=== PATIENT | male | born 1960 | race Caucasian/White ===

== ENCOUNTER 2020-06-10 10:41 | Emergency (ER) | payer OTHER ==
--- NOTE | 2020-06-10 11:05 | ERPHSYRPT ---
- History of Present Illness Time Seen by Provider: 06/10/20 10:55 Source: patient Exam Limitations: no limitations Patient Subjective Stated Complaint: Cough Triage Nursing Assessment: Patient ambulated back to ED and transferred self to bed. Patient A+O X3. Patient's skin pink, warm and dry. Patient complains of productive cough producing thick gonzalez, blood tinged sputum for a few days ago. Patient states he has been having fever on and off for 6 weeks that usually will last 3-4 days and will be 101.0-102.0. Patient denies pain or discomfort. Lungs clear a/p heidy. 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 Patient is a smoker of cigarettes. He is not on any medications at this time and he has no known drug allergies. He states that he has had fevers intermittently over the last few days but he is never taken his temperature. A few times he has had blood in the phlegm he is coughed up. Patient denies chest pain and denies shortness of breath. Timing/Duration: day(s) (5) Cough Quality/Degree: mild, blood streaked sputum Possible Cause: no prior episodes Modifying Factors: Improves With: coughing Associated Symptoms: fever (Subjective), cough, No chest pain/soreness, No lightheadedness Allergies/Adverse Reactions: No Known Drug Allergies Allergy (Unverified 06/10/20 10:44) Hx Influenza Vaccination/Date Given: No Hx Pneumococcal Vaccination/Date Given: No Immunizations Up to Date: Yes Travel Risk - International Travel Have you traveled outside of the country in past 3 weeks: No - Coronavirus Screening Are you exhibiting any of the following symptoms?: Yes Symptoms: Fever, Cough: New Onset, Shortness of Breath Close contact with a COVID-19 positive Pt in past 14-21 Days: No - Review of Systems Constitutional: Fever (Subjective at home) Eyes: No Symptoms Ears, Nose, & Throat: No Symptoms Respiratory: Cough, No Dyspnea Cardiac: No Symptoms, No Chest Pain Abdominal/Gastrointestinal: No Symptoms Genitourinary Symptoms: No Symptoms Musculoskeletal: No Symptoms Skin: No Symptoms Neurological: No Symptoms Psychological: No Symptoms Endocrine: No Symptoms Hematologic/Lymphatic: No Symptoms Immunological/Allergic: No Symptoms All Other Systems: Reviewed and Negative - Past Medical History Pertinent Past Medical History: Yes Neurological History: No Pertinent History ENT History: No Pertinent History Cardiac History: Hypertension Respiratory History: No Pertinent History Endocrine Medical History: No Pertinent History Musculoskeletal History: No Pertinent History GI Medical History: No Pertinent History History: No Pertinent History Psycho-Social History: No Pertinent History Male Reproductive Disorders: No Pertinent History Other Medical History: [place] disease - Past Surgical History Past Surgical History: Yes Neuro Surgical History: No Pertinent History Cardiac: No Pertinent History Respiratory: No Pertinent History Gastrointestinal: No Pertinent History Genitourinary: No Pertinent History Musculoskeletal: Orthopedic Surgery Male Surgical History: No Pertinent History Other Surgical History: Back surgery 1998 - Social History Smoking Status: Current every day smoker How long have you smoked: years Exposure to second hand smoke: Yes Drug Use: none Patient Lives Alone: Yes - Nursing Vital Signs Nursing Vital Signs: Initial Vital Signs Temperature 98.1 F 06/10/20 10:45 Pulse Rate 82 06/10/20 10:45 Respiratory Rate 20 06/10/20 10:45 Blood Pressure 184/115 06/10/20 10:45 O2 Sat by Pulse Oximetry 95 06/10/20 10:45 Pain Scale Pain Intensity 0 - Physical Exam General Appearance: no apparent distress, alert, anxiety Eye Exam: PERRL/EOMI, eyes nml inspection Ears, Nose, Throat Exam: normal ENT inspection, moist mucous membranes Neck Exam: normal inspection, non-tender, supple, full range of motion Respiratory Exam: normal breath sounds, lungs clear, airway intact, No chest tenderness, No respiratory distress Cardiovascular Exam: regular rate/rhythm, normal heart sounds, normal peripheral pulses Gastrointestinal/Abdomen Exam: soft, normal bowel sounds, No tenderness Rectal Exam: not done Back Exam: normal inspection, normal range of motion, No CVA tenderness, No vertebral tenderness Extremity Exam: normal inspection, normal range of motion, pelvis stable Neurologic Exam: alert, oriented x 3, cooperative, normal mood/affect Skin Exam: normal color, warm, dry Lymphatic Exam: No adenopathy SpO2 Interpretation: normal SpO2: 98 O2 Delivery: Room Air - Course Nursing assessment & vital signs reviewed: Yes Ordered Tests: Active Orders 24 hr Category Date Time Status CHEST 1 VIEW (PORTABLE) Stat Exams 06/10/20 11:06 Completed INFLUENZA A+B ANYA Stat Lab 06/10/20 11:20 Received Medication Summary Generic Name Dose Route Start Last Admin Trade Name Freq PRN Reason Stop Dose Admin Ceftriaxone Sodium 1,000 mg 06/10/20 11:42 Rocephin 1000 Mg Inj IM 06/10/20 11:43 STAT ONE Methylprednisolone Sodium Succinate 125 mg 06/10/20 11:42 Solu-Medrol 125 Mg IM 06/10/20 11:43 STAT ONE - Progress Progress: unchanged Air Movement: good Progress Note: 06/10/20 11:43 Chest x-ray shows right middle lung infiltrate versus atelectasis. Blood Culture(s) Obtained: No Antibiotics given: Yes Counseled pt/family regarding: lab results, diagnosis, need for follow-up, rad results - Departure Departure Disposition: Home Clinical Impression: Right pulmonary infiltrate on CXR Condition: Stable Critical Care Time: No Additional Instructions: Stop smoking. Avoid exposure to any kind of smoke. Drink plenty of fluids. Follow-up with your primary care physician for further management. Take medication as prescribed. Quarantine as directed until your COVID-19 test re sult returns. Prescriptions: Hydrocodone/Acetaminophen [Hydrocodone-Acetamn 7.5-325/15] 10 ml PO Q8H PRN PRN #120 ml MDD 30ml PRN Reason: Cough Albuterol 8 gm Mdi Hfa [Ventolin Hfa MDI] 8 gm IH Q4H #1 hfa.[email or web address].[email or web address] Azithromycin 250 mg [Zithromax 250 MG TABLET] 250 mg PO ZPACK #6 tablet
--- NOTE | 2020-06-10 11:36 | XRAY ---
Indication: Fever and cough. Comparison: None Portable chest demonstrates right mid lung infiltrate versus atelectasis and 6mm foreign body overlying left lung base. Remaining heart and lungs unremarkable. Bony thorax intact with mild degenerative changes.
[2020-06-10 11:39] VITALS: BP 154/108; PULSE 80
[2020-06-10] MEDS ORDERED: Rocephin 1000 MG INJ IM ONE (11:42)
[2020-06-10] MEDS ORDERED: solu-MEDROL 125 MG IM ONE (11:42)
[2020-06-10] MEDS ORDERED: solu-MEDROL 125 MG ONE (11:45)
[2020-06-10] MEDS ORDERED: Rocephin 1000 MG INJ ONE (11:45)
[2020-06-10] MEDS ORDERED: XYLOCAINE 1% HCL 20 ML MDV ONE (11:45)
[2020-06-10 11:47] VITALS: O2SAT 98
[2020-06-10 13:02] LABS: INFLUENZA A NEGATIVE (NEGATIVE); INFLUENZA B NEGATIVE (NEGATIVE)
== END 2020-06-10 12:14 | disposition home or self-care (01) ==
LOC: ED 10:41
DX: R91.8 Other nonspecific abnormal finding of lung field (principal); R05 Cough; Z72.0 Tobacco use
CPT/HCPCS: 71045; 87400; 96372; 99284; U0003; J0696; J2930

== ENCOUNTER 2021-02-23 06:28 | Emergency (ER) | payer OTHER ==
--- NOTE | 2021-02-23 07:05 | ERPHSYRPT ---
- History of Present Illness Time Seen by Provider: 02/23/21 07:00 Source: patient Exam Limitations: no limitations Patient Subjective Stated Complaint: I fell yesterday in the yard yesteday and tried to catch myself, and my shoulder really hurts today. Triage Nursing Assessment: pt fell in yard yesterday around 1500, while climbing off the mower and tripped. Pt landed on his rt shoulder. Pt had pain there yesterday but can't hardly move the rt shoulder today, can't lift it up. Physician History: This is a 60-year-old left-handed white male with [place]'s chorea who was mowing his lawn yesterday and lost balance, falling on his right shoulder. Pain was worse this morning. He did not lose consciousness. He did not hit his head. He denies headache. He denies neck pain. Occurred: yesterday Method of Injury: fell Quality: constant, aching Severity of Pain-Max: mild (To moderate) Severity of Pain-Current: mild (To moderate) Modifying Factors: Improves With: movement Associated Symptoms: none Allergies/Adverse Reactions: No Known Drug Allergies Allergy (Verified 02/23/21 06:52) Home Medications: Carvedilol 6.25 mg [Coreg 6.25 MG] 1 tab PO DAILY 02/23/21 [History] Hx Tetanus, Diphtheria Vaccination/Date Given: Yes Hx Influenza Vaccination/Date Given: No Hx Pneumococcal Vaccination/Date Given: No Immunizations Up to Date: Yes Travel Risk - International Travel Have you traveled outside of the country in past 3 weeks: No - Coronavirus Screening Are you exhibiting any of the following symptoms?: No Close contact with a COVID-19 positive Pt in past 14-21 Days: No - Vaccine Status Have you recieved a Covid-19 vaccination: Yes 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 - Vaccination Dates Date of 2cond Vaccination (if applicable): 10/16/20 - Review of Systems Constitutional: No Symptoms Eyes: No Symptoms Ears, Nose, & Throat: No Symptoms Respiratory: No Symptoms Cardiac: No Symptoms Abdominal/Gastrointestinal: No Symptoms Genitourinary Symptoms: No Symptoms Musculoskeletal: Fall, Injury (Right shoulder) Skin: No Symptoms Neurological: No Symptoms Psychological: No Symptoms Endocrine: No Symptoms Hematologic/Lymphatic: No Symptoms Immunological/Allergic: No Symptoms All Other Systems: Reviewed and Negative - Past Medical History Pertinent Past Medical History: Yes Neurological History: No Pertinent History ENT History: No Pertinent History Cardiac History: Hypertension Respiratory History: No Pertinent History Endocrine Medical History: No Pertinent History Musculoskeletal History: No Pertinent History GI Medical History: No Pertinent History History: No Pertinent History Psycho-Social History: No Pertinent History Male Reproductive Disorders: No Pertinent History Other Medical History: [place] disease - Past Surgical History Past Surgical History: Yes Neuro Surgical History: No Pertinent History Cardiac: No Pertinent History Respiratory: No Pertinent History Gastrointestinal: No Pertinent History Genitourinary: No Pertinent History Musculoskeletal: Orthopedic Surgery Male Surgical History: No Pertinent History Other Surgical History: Back surgery 1998 - Social History Smoking Status: Current every day smoker How long have you smoked: 40 Exposure to second hand smoke: Yes Drug Use: none Patient Lives Alone: No - Nursing Vital Signs Nursing Vital Signs: Initial Vital Signs Temperature 98.3 F 02/23/21 06:40 Pulse Rate 74 02/23/21 06:40 Respiratory Rate 18 02/23/21 06:40 Blood Pressure 180/110 02/23/21 06:40 O2 Sat by Pulse Oximetry 99 02/23/21 06:40 Pain Scale Pain Intensity 7 - Physical Exam General Appearance: no apparent distress, alert Eyes, Ears, Nose, Throat Exam: normal ENT inspection, moist mucous membranes Neck Exam: normal inspection, non-tender, supple, full range of motion Cardiovascular/Respiratory Exam: chest non-tender, normal breath sounds, regular rate/rhythm, heart sounds normal, no respiratory distress Abdominal Exam: non-tender Back Exam: normal inspection, normal range of motion, No CVA tenderness, No vertebral tenderness Shoulder Exam: normal inspection, no evidence of injury, limited ROM, pain, soft tissue tenderness Elbow/Forearm Exam: normal inspection, non-tender, no evidence of injury, normal ROM Wrist Exam: normal inspection, non-tender, no evidence of injury, normal ROM Hand Exam: normal inspection, non-tender, no evidence of injury, normal ROM Neuro/Tendon Exam: normal sensation, normal motor functions, normal tendon functions Mental Status Exam: alert, oriented x 3, cooperative Skin Exam: normal color, warm, dry SpO2 Interpretation: normal SpO2: 99 O2 Delivery: Room Air - Course Nursing assessment & vital signs reviewed: Yes Ordered Tests: Active Orders 24 hr Category Date Time Status Sling Application STAT Care 02/23/21 08:34 Active CLAVICLE Stat Exams 02/23/21 07:06 Taken SHOULDER Stat Exams 02/23/21 07:06 Taken - Progress Progress: unchanged, pain not gone completely Progress Note: 02/23/21 08:42 X-ray right shoulder no acute fracture or dislocation.? Mild AC separation. X-ray right clavicle no evidence of any acute fracture or dislocation. Counseled pt/family regarding: diagnosis, need for follow-up, rad results - Departure Departure Disposition: Home Clinical Impression: Right shoulder pain, Injury of right shoulder Condition: Stable Critical Care Time: No Referrals: KAITLIN AQUINO [Primary Care Provider] - Additional Instructions: Wear sling for comfort. Ice pack to area 3 times a day for next 48 hours. Take your medication as prescribed. Follow-up with [facility] orthopedic clinic for persistent symptoms. Prescriptions: Oxycodone HCl/Acetaminophen [Percocet 5-325 mg Tablet] 1 each PO Q8H PRN PRN #6 tablet MDD 3 PRN Reason: Pain
[2021-02-23 08:47] VITALS: O2SAT 99
[2021-02-23 09:03] VITALS: BP 129/91; PULSE 62
--- NOTE | 2021-02-23 09:06 | XRAY ---
Indication: Pain following fall. Comparison: None 3 view right shoulder demonstrates mild osteopenia and mild acromioclavicular degenerative arthropathy. No other bony, articular, or soft tissue abnormalities.
--- NOTE | 2021-02-23 09:08 | XRAY ---
Indication: Pain following fall. Comparison: None 2 view right clavicle demonstrates mild osteopenia and mild degenerative arthropathy sternoclavicular/acromioclavicular articulations. No other bony, articular, or soft tissue abnormalities.
== END 2021-02-23 09:16 | disposition home or self-care (01) ==
LOC: ED 06:28
DX: M25.511 Pain in right shoulder (principal); W18.30XA Fall on same level, unspecified, initial encounter; Y93.9 Activity, unspecified; Y92.096 Garden or yard of other non-institutional residence as the place of occurrence of the external cause
CPT/HCPCS: 73000; 73030; 99283

== ENCOUNTER 2022-03-22 19:12 | Emergency (ER) | payer OTHER ==
[2022-03-22 19:23] VITALS: BP 162/111; PULSE 79; O2SAT 97
--- NOTE | 2022-03-22 19:45 | ERPHSYRPT ---
- History of Present Illness Time Seen by Provider: 03/22/22 19:30 Source: patient Exam Limitations: no limitations Patient Subjective Stated Complaint: pt is stating he has been feeling unwell for 4 days stating he has shortness of breath at night nd states he is worried he has covid Triage Nursing Assessment: pt is alert and oriented able to answer questions. pt has tremors and states that he has a history of huntingtons disease diagnosed 20 years ago. appears anxious and does not appear SOB. pt sats 97% on room air. BP 162/111 Physician History: Patient is a 61-year-old male presents to our ED for evaluation of sore throat. Symptoms have been going on for 4 days. Patient states that his throat feels dry at night and occasionally feels as though he cannot breathe. He feels better when he sits up. Patient concerned he may have COVID. Patient denies any shortness of breath per se. No chest pain. No nausea vomiting or diaphoresis. Patient states he only wants a COVID test. Patient refused any other studies. He does not want an x-ray. He does not feel 1 is necessary. No fever. Symptoms are mild to moderate in intensity. No specific worsening improving factors. Patient has history of [place]'s chorea. Patient voices no other complaints or concerns at this time. Portions of this note were created with voice recognition technology. There may be grammatical, spelling, punctuation or sound alike errors Timing/Duration: day(s) (4 days) Severity: moderate Modifying Factors: Improves With: nothing Associated Symptoms: denies symptoms Allergies/Adverse Reactions: No Known Drug Allergies Allergy (Verified 02/23/21 06:52) Home Medications: Carvedilol [Coreg 6.25 MG] 1 tab PO DAILY 02/23/21 [History] Hx Tetanus, Diphtheria Vaccination/Date Given: Yes Hx Influenza Vaccination/Date Given: No Hx Pneumococcal Vaccination/Date Given: No Travel Risk - International Travel Have you traveled outside of the country in past 3 weeks: No - Coronavirus Screening Are you exhibiting any of the following symptoms?: Yes Symptoms: Cough: New Onset - Vaccine Status Have you recieved a Covid-19 vaccination: Yes 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 - Vaccination Dates Date of 2cond Vaccination (if applicable): unknown - Review of Systems Constitutional: No Symptoms, No Fever, No Chills Eyes: No Symptoms Ears, Nose, & Throat: No Symptoms Respiratory: No Symptoms, No Cough, No Dyspnea Cardiac: No Symptoms, No Chest Pain, No Edema, No Syncope Abdominal/Gastrointestinal: No Symptoms, No Abdominal Pain, No Nausea, No Vomiting, No Diarrhea Genitourinary Symptoms: No Symptoms, No Dysuria Musculoskeletal: No Symptoms, No Back Pain, No Neck Pain Skin: No Symptoms, No Rash Neurological: No Symptoms, No Dizziness, No Focal Weakness, No Sensory Changes Psychological: No Symptoms Endocrine: No Symptoms Hematologic/Lymphatic: No Symptoms Immunological/Allergic: No Symptoms All Other Systems: Reviewed and Negative - Past Medical History Pertinent Past Medical History: Yes Neurological History: No Pertinent History ENT History: No Pertinent History Cardiac History: Hypertension Respiratory History: No Pertinent History Endocrine Medical History: No Pertinent History Musculoskeletal History: No Pertinent History GI Medical History: No Pertinent History History: No Pertinent History Psycho-Social History: No Pertinent History Male Reproductive Disorders: No Pertinent History Other Medical History: [place] disease - Past Surgical History Past Surgical History: Yes Neuro Surgical History: No Pertinent History Cardiac: No Pertinent History Respiratory: No Pertinent History Gastrointestinal: No Pertinent History Genitourinary: No Pertinent History Musculoskeletal: Orthopedic Surgery Male Surgical History: No Pertinent History Other Surgical History: Back surgery 1998 - Social History Smoking Status: Current every day smoker How long have you smoked: 40 Exposure to second hand smoke: Yes Drug Use: none Patient Lives Alone: No - Nursing Vital Signs Nursing Vital Signs: Initial Vital Signs Temperature 96.5 F 03/22/22 19:13 Pulse Rate 79 03/22/22 19:13 Respiratory Rate 16 03/22/22 19:13 Blood Pressure 162/111 03/22/22 19:13 O2 Sat by Pulse Oximetry 94 L 03/22/22 19:13 Pain Scale Pain Intensity 0 - Physical Exam General Appearance: no apparent distress, alert Eye Exam: PERRL/EOMI, eyes nml inspection Ears, Nose, Throat Exam: normal ENT inspection, TMs normal, pharynx normal, moist mucous membranes, pharyngeal erythema (Erythematous oropharynx. No tonsillar exudate) Neck Exam: normal inspection, non-tender, supple, full range of motion Respiratory Exam: normal breath sounds, lungs clear, No respiratory distress Cardiovascular Exam: regular rate/rhythm, normal heart sounds, normal peripheral pulses Gastrointestinal/Abdomen Exam: soft, normal bowel sounds, No tenderness, No mass Back Exam: normal inspection, normal range of motion, No CVA tenderness, No vertebral tenderness Extremity Exam: normal inspection, normal range of motion, pelvis stable Neurologic Exam: alert, oriented x 3, cooperative, normal mood/affect, nml c erebellar function, nml station & gait, sensation nml, No motor deficits Skin Exam: normal color, warm, dry, No rash Lymphatic Exam: No adenopathy SpO2 Interpretation: normal SpO2: 97 O2 Delivery: Room Air - Course Nursing assessment & vital signs reviewed: Yes EKG Interpreted by Me: RATE (73), Sinus Rhythm, NORMAL AXIS, NORMAL INTERVALS Ordered Tests: Active Orders 24 hr Category Date Time Status EKG-ER Only STAT Care 03/22/22 19:50 Active Lab/Rad Data: Laboratory Results 03/22/22 03/22/22 Range/Units 19:55 19:55 Influenza Type A Ag NEGATIVE (NEGATIVE) Influenza Type B Ag NEGATIVE (NEGATIVE) RSV (PCR) NEGATIVE (Negative) SARS-CoV-2 (PCR) NEGATIVE (NEGATIVE) Group A Strep Antibody NOT DETECTED (NEGATIVE) - Progress Progress: improved Progress Note: Patient reassessed. He is resting comfortably. Viral panel negative. COVID- negative. Rapid strep negative. Patient declined further work-up. Patient only wants a COVID test. Patient denies shortness of breath. Patient agrees to follow-up with his primary care doctor within 48 hours for evaluation. Portions of this note were created with voice recognition technology. There may be grammatical, spelling, punctuation or sound alike errors 03/22/22 21:11 EKG performed. EKG normal sinus rhythm 03/22/22 21:11 Counseled pt/family regarding: lab results, diagnosis, need for follow-up - Departure Departure Disposition: Home Clinical Impression: Viral pharyngitis Condition: Stable Critical Care Time: No Referrals: KAITLIN AQUINO NP [NON-STAFF PHY W/O PRIVILEGES] - Follow up/PCP as directed Additional Instructions: Discharge/Care Plan VIRGEN SANON was seen on 03/22/22 in the Emergency Room. The patient was counseled regarding Diagnosis,Lab results, Imaging studies, need for follow up and when to return to the Emergency Room. Prescriptions given: Discharge Note I have spoken with the patient and/or caregivers. I have explained the patient's condition, diagnosis and treatment plan based on the information available to me at this time. I have answered the patient's and/or caregiver's questions and addressed any concerns. The patient and/or caregivers have as good understanding of the patient's diagnosis, condition and treatment plan as can be expected at this point. The vital signs have been stable. The patient's condition is stable and appropriate for discharge from the emergency department. The patient will pursue further outpatient evaluation with the primary care physician or other designated or consulting physician as outlined in the discharge instructions. The patient and/or caregivers are agreeable to this plan of care and follow-up instructions have been explained in detail. The patient and/or caregivers have received these instruction. The patient/and or caregivers are aware that any significant change in condition or worsening of symptoms should prompt an immediate return to this or the closest emergency department or call 911.
[2022-03-22 20:48] LABS: INFLUENZA A NEGATIVE (NEGATIVE); INFLUENZA B NEGATIVE (NEGATIVE); RESPIRATORY SYNCTIAL VIRUS NEGATIVE (Negative); SARS-CoV-2 Xpert Express NEGATIVE (NEGATIVE)
== END 2022-03-22 21:22 | disposition home or self-care (01) ==
LOC: ED 19:12
DX: J02.9 Acute pharyngitis, unspecified (principal); I10 Essential (primary) hypertension; Z72.0 Tobacco use; Z79.899 Other long term (current) drug therapy
CPT/HCPCS: 0241U; 87651; 93005; 99283